=== PATIENT | female | born 1995 | race Caucasian/White ===

== ENCOUNTER → 2016-07-31 | Outpatient (CLI) | payer BC, MEDICAID ==
[~2016-07-31] MED LIST: BACTRIM 400 MG-1 TAB PO; TESSALON PERLE100 MG PO; ZITHROMAX Z-PA250 M1 PO
[2016-08-04 10:37] LABS: Neisseria gonorrhoeae, NAA Negative (Negative)
== END ==
LOC: LAB 14:51
PROVIDERS: Nurse Practitioner Obstetrics & Gynecology
DX: Z72.51 High risk heterosexual behavior (principal)

== ENCOUNTER 2017-03-26 18:36 | Emergency (ER) | payer BC, MEDICAID ==
[~2017-03-26] VITALS: Ht 160 cm; Wt 98.9 kg
[2017-03-26 19:14] LABS: LYMPH % 17.4 % (10-50.0)
--- NOTE | 2017-03-26 19:26 | Emergency Room Report ---
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 N Clinical Suspician of Infection? N Mental Status: 1 - Regular (Normal Baseline) Sepsis Risk:Low Sepsis Risk Have you (or family members/close friends) recently traveled outside the [place]? N If Yes, where/when: Have you had exposure to infectious disease within the past month? N TB? Other? Specify: Comment The patient states that she is 35 weeks' gestation , prima , marketing program manager is Dr. Fairchild. She has had swelling of her legs since Wednesday 2 days ago. Both legs are swollen and both of them hurt from her knees down to her feet. She says that she called Dr. Fairchild's office today and they told her to go to outpatient, but when she went to her this evening there was nobody there and they sent her here. She says that her blood pressure has been good during the except it was a little elevated on one visit. She has had swelling off and on during this , but it is worse now. She feels a little winded when she walks. She has to concentrate to urinate. Otherwise she says she has no symptoms. ALLERGIES Coded Allergies: No Known Drug Allergies (NKDA) (06/09/14) Home Medications Reported Medications Ferrous Sulfate (Ferrous Sulfate 325MG) 325 MG PO DAILY History Medical History General CAD? No Angina: No WV: No Hypertension? No Hyperlipidemia? No CHF? No DVT? No PE? No COPD? No Asthma? No Anemia? No GERD? No Gastric ulcers? No GI Bleed? No Hernia? No Thyroid Problems? No Hypothyroidism? No CVA? No Seizures? No Diabetes? No Renal Insuffiency? No End Stage Renal Disease? No UTI? No Stones? No BPH? No GB Disease: No Nephritic Syndrome? No Asplenia? No Hepatitis? No Sickle Cell Disease? No Arthritis? No Migraines? No Cataracts? No Glaucoma? No MRSA? No HIV? No TB? No Anxiety? No Depression? No Cancer? No More? 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 FAIRCHILD Social History Smoking Hx Smoker: Never Smoker Tobacco: No Packs/day < 1 Pack Are you/the child exposed to second-hand smoke: No Alcohol Alcohol: No Review of Systems All Other Systems Reviewed and Negative Constitutional denies fever Respiratory shortness of breath (on exertion) Cardiovascular denies chest pain, edema Gastrointestinal denies abdominal pain Genitourinary see HPI. denies: abnormal vaginal bleeding. Psychiatric/Neurological denies headache Physical Exam Vital Signs Vital Signs Date Time Temp Pulse Resp B/P Pulse O2 O2 Flow FiO2 Ox Delivery Rate 03/26 1955 98.3 80 18 147/73 98 03/26 1842 98.3 88 18 152/88 98 General Appearance no apparent distress Eye Exam - bilateral eye normal exam, bilateral eye PERRL, bilateral eye EOMI Ear, Nose, Throat hearing grossly normal, normal ENT inspection Neck normal inspection, non-tender, supple, full range of motion Respiratory Status Yes: trachea midline, chest symmetrical, non tender chest. No: respiratory distress. Lung Sounds bilateral: normal breath sounds, lungs clear. Cardiovascular normal exam, regular rate/rhythm, no peripheral edema, no gallop, no JVD, no murmur, no rub, normal peripheral pulses Peripheral Pulses Pulses normal Yes Gastrointestinal normal bowel sounds, soft, no organomegaly, gravid uterus, consistent with gestational dates, nontender Extremities 1+ pitting edema of lower legs and ankles. Generalized tenderness of lower legs from knees to ankles. No erythema. No cords., normal pulses, capillary refill, sensation Neurologic alert, normal exam, oriented x 3 Mental status normal mood/affect Skin intact, normal color, warm/dry Medical Decision Making LABS/Meds/Orders Pt receiving controlled substance in ED? No Results/Orders Laboratory Tests 03/26/170: Urine Color YELLOW, Urine Appearance CLEAR, Urine pH 6.5, Ur Specific [place] 1.025, Urine Protein NEGATIVE, Urine Ketones NEGATIVE, Urine Blood NEGATIVE, Urine Nitrate NEGATIVE, Urine Bilirubin NEGATIVE, Urine Urobilinogen 1.0, Ur Leukocyte Esterase TRACE H, Urine RBC NONE, Urine WBC 10-20, Ur Squamous Epith Cells 20-50, Urine Bacteria 3+, Urine Glucose NEGATIVE 03/26/171903: Uric Acid 4.7, Magnesium 1.7 03/26/171903: Lactate Dehydrogenase 167 03/26/171903: Sodium 138, Potassium 4.0, Chloride 103, Carbon Dioxide 22, BUN 13, Creatinine 0.9, Estimated Creat Clear 154, Estimated GFR (MDRD) 79, Glucose 112 H, Calcium 8.6, Total Bilirubin 0.3, AST 19, ALT 11 L, Alkaline Phosphatase 181 H, Total Protein 6.9, Albumin 2.7 L, Globulin 4.2 H, Albumin/Globulin Ratio 0.6 L, WBC 11.5 H, RBC 3.84 L, Hgb 11.0 L, Hct 34.6 L, MCV 90.1, RDW 13.8, Plt Count 277, MPV 9.0, Gran % 76.8, Gran # 8.8 H, Lymphocytes % 17.4, Monocytes % 5.2, Eosinophils % 0.5, Basophils % 0.2, Lymphocytes # 2.0, Monocytes # 0.6, Eosinophils # 0.1, Basophils # 0.0, PUBS MCHC 31.7 L, MCH 28.5 Current Medication Orders Sig/Elicia Start time Last Medication Dose Route Stop Time Status Admin Sodium Chloride 10 ML PRN PRN 03/26 1900 AC IV 03/27 1857 Orders Procedure Date/time Status CULTURE, URINE 03/26 1940 Active LDH 03/26 1901 Complete URIC ACID 03/26 1900 Complete URINALYSIS/COMPLETE 03/26 1900 Complete MAGNESIUM 03/26 1900 Complete IV SALINE LOCK 03/26 1857 Active CBC WITH AUTO DIFF 03/26 1857 Complete CHEM 12 PROFILE 03/26 1857 Complete Progress - 8:00 PM: Case discussed with Dr. Fairchild. He states the patient may discharge, bed rest this weekend, he will follow her up at the first of the week. Departure Departure Disposition DC Home or Self Care(routine) Clinical Impression Primary Impression: Peripheral edema Secondary Impressions: Elevated blood pressure affecting in third trimester, antepartum Condition STABLE Referrals JACEK,RUBEN (Family) Additional Instructions Off work until Wednesday03/30/17. Bed rest this weekend. Contact Dr. Fairchild on Wednesday. ED Critical Care Critical Care No at 2009
[2017-03-26 19:46] LABS: URINE BILIRUBIN - DIPSTICK NEGATIVE (NEG); URINE BLOOD NEGATIVE (NEG)
[2017-03-26 20:02] LABS: URINE SQUAMOUS CELLS 20-50 #/hpf (0-5)
[2017-03-26 20:25] VITALS: BP 147/73
== END 2017-03-26 20:26 | disposition home or self-care (01) ==
LOC: ER 18:36
PROVIDERS: Emergency Medicine
DX: O14.93 Unspecified pre-eclampsia, third trimester (principal); Z3A.35 35 weeks gestation of pregnancy

== ENCOUNTER → 2017-03-30 | Outpatient (CLI) | payer BC, MEDICAID ==
[~2017-03-30] MED LIST changes: +FERROUS SULFAT325 M2 PO
== END ==
LOC: LAB 18:48
DX: Z34.80 Encounter for supervision of other normal pregnancy, unspecified trimester (principal)

== ENCOUNTER 2017-04-16 13:01 | Outpatient (CLI) | payer BC, MEDICAID ==
[~2017-04-16] VITALS: Ht 160 cm; Wt 103.9 kg
[2017-04-16 13:18] VITALS: BP 140/78
[2017-04-16] MEDS ORDERED: RANITIDINE HCL150 MG PO (13:21)
[2017-04-16 13:35] LABS: URINE BILIRUBIN - DIPSTICK NEGATIVE (NEG); URINE BLOOD NEGATIVE (NEG)
[2017-04-16 13:54] LABS: URINE SQUAMOUS CELLS TNTC #/hpf (0-5)
== END 2017-04-16 14:30 | disposition home or self-care (01) ==
LOC: OBOUT 13:01 → OB 13:02 → OBOUT 14:30
PROVIDERS: Nurse Practitioner Obstetrics & Gynecology
DX: O42.90 Premature rupture of membranes, unspecified as to length of time between rupture and onset of labor, unspecified weeks of gestation (principal); Z3A.37 37 weeks gestation of pregnancy

== ENCOUNTER 2017-05-05 04:44 | Inpatient (IN) | payer BC, MEDICAID ==
[~2017-05-05] VITALS: Ht 160 cm; Wt 108.4 kg
[~2017-05-05 04:44] MED LIST changes: +RANITIDINE HCL150 MG PO
--- OUTSIDE RECORDS SUMMARY | 2017-05-05 04:49 | External Medical Summary Rpt | CCD ---
Author Author , JORGE PATEL Address Unknown Phone [email or web address] Care Team Providers Care Environmental Air Specialist Name Role Phone [facility] # Unavailable Unavailable [id number], [facility] # [id number] Purpose Continuity of Care Document - 10-18-2009 through 2016 Problems Code Diagnosis DOS Provider Status N91.2 Amenorrhea, unspecified O13.3 GESTATIONAL HTN W/O SIGNIFICANT PROTEINURIA , THIRD TRIMESTER R60.9 EDEMA, UNSPECIFIED S90.121A Contusion of right lesser toe(s) without damage to nail, initial encounter Z00.00 Encounter for general adult medical examination without abnormal findings Medications Na ND Rx Da Fi Fi Am Da Di Ph RX Ph St me C No te ll ll ou ys ag ar # ys at rm s nt no ma ic us Or Da si cy ia de te s n re d BR 60 10 10 0 24 6 77 Ac OM 43 -1 -1 0. 64 HC ti FE 20 26 RA ve D 83 20 20 0 FT DM 71 11 11 6 TR CO OY UG H SY RU P CE 68 10 10 0 14 7 77 Ac FD 18 -1 -1 .0 64 HC ti IN 00 25 RA ve IR 71 20 20 FT 16 11 11 30 0 TR 0 OY MG CA PS UL E TX 37 08 09 3 28 28 77 Ac [place] 00 -1 -1 .0 16 HC ti OS 00 25 RA ve EC 45 20 20 FT 50 11 11 OT 2 TR C OY 20 .6 MG TA BL ET NA 00 04 09 1 30 15 76 BA Ac TX 09 -2 -1 .0 22 RT ti OX 30 76 MA ve EN 53 20 20 N 70 11 11 VE SO 1 RO DI NI UM QU E 55 0 MG TA B RA 53 12 09 3 60 30 74 BA Ac NI 74 -0 -1 .0 99 RT ti TI 60 7- 00 12 MA ve DI 25 20 20 N NE 30 10 11 VE 5 RO 15 NI 0 QU MG E TA BL ET NA 00 08 08 3 30 30 77 Ac TX 09 -1 -1 .0 16 HC ti OX 30 26 RA ve EN 53 20 20 FT 70 11 11 SO 1 TR DI OY UM 55 0 MG TA B TX 37 08 08 3 28 28 77 Ac IL 00 -1 -1 .0 16 HC ti OS 00 25 RA ve EC 45 20 20 FT 50 11 11 OT 2 TR C OY 20 .6 MG TA BL ET NA 00 04 04 1 30 15 76 BA Ac TX 09 -2 -2 .0 22 RT ti OX 30 6- 6- 00 76 MA ve EN 53 20 20 N 70 11 11 VE SO 1 RO DI NI UM QU E 55 0 MG TA B RA 53 12 04 3 60 30 74 BA Ac NI 74 -0 -2 .0 99 RT ti TI 60 7- 5- 00 12 MA ve DI 25 20 20 N NE 30 10 11 VE 5 RO 15 NI 0 QU MG E TA BL ET TX 37 04 04 5 28 28 76 BE Ac IL 00 -2 -2 .0 21 NG ti OS 00 5- 5 19 E ve EC 45 20 20 VIVEK 50 11 11 SH OT 2 UA C M 20 .6 MG TA BL ET RA 53 12 12 3 60 30 74 BA Ac NI 74 -0 -0 .0 99 RT ti TI 60 7- 8- 00 12 MA ve DI 25 20 20 N NE 30 10 10 VE 5 RO 15 NI 0 QU MG E TA BL ET NA 00 10 10 0 30 15 74 BA Ac TX 09 -2 -2 .0 60 RT ti OX 30 6- 6- 00 46 MA ve EN 53 20 20 N 70 10 10 VE SO 1 RO DI NI UM QU E 55 0 MG TA B RA 00 04 07 1 60 20 WA 73 BA Ac NI 17 -2 -1 .0 L- 49 RT ti TI 24 8- 3- 00 MA 10 MA ve DI 35 20 20 RT 1 N NE 74 10 10 VE 9 PH RO 15 AR NI 0 MA QU MG CY E # TA BL 10 ET 19 61 RA 00 04 04 1 60 20 WA 73 BA Ac NI 17 -2 -3 .0 L- 49 RT ti TI 24 8- 0- 00 MA 10 MA ve DI 35 20 20 RT 1 N NE 74 10 10 VE 9 PH RO 15 AR NI 0 MA QU MG CY E # TA BL 10 ET 19 61 TX 68 04 04 0 20 3 WA 73 BA Ac OM 38 -2 -3 .0 L- 49 RT ti ET 20 8- 0- 00 MA 10 MA ve PAUL 04 20 20 RT 0 N ZI 10 10 10 VE NE 1 PH RO AR NI 25 MA QU CY E MG # TA 10 BL 19 ET 61 Results Labs Lab Lab Date Result Refere Interp Status Commen Order Detail nces retati t Range on Cervicovaginal discharge rapid detection (04-16-2017 13:20) Cervico NEGATIV complet vaginal 017 E FOR ed 13:20 RUPTURE dischar ge NEGATIV rapid E FOR detecti RUPTURE on L Urinalysis with microscopy (04-16-2017 13:16) Comment: Collected by nurse? Y Comment: Hold specimen in OE? N Urine CLEAR CLEAR complet appeara 017 CLEAR L ed nce 13:16 determi nation Bacteri 3+ 3+ L O complet a 017 ed detecti 13:16 on in urine sedimen t by Urine NEGATIV NEG complet total 017 E ed bilirub 13:16 NEGATIV in E L detecti on by test Urine NEGATIV NEG complet blood 017 E ed detecti 13:16 NEGATIV on E L Urine YELLOW YELLOW complet color 017 YELLOW ed 13:16 L Glucose = NEG complet ur 017 NEGATIV ed test 13:16 E strip Urine NEGATIV NEG complet ketones 017 E ed 13:16 NEGATIV detecti E L on by mg/dL automat ed melanie Mucus 1+ 1+ L NEG complet detecti 017 ed on in 13:16 urine sedimen t by lig Urine NEGATIV NEG complet nitrite 017 E ed 13:16 NEGATIV detecti E L on by test strip Urine = 6.0 5.0-8.5 complet pH 017 ed 13:16 Urine = NEG complet protein 017 NEGATIV ed 13:16 E mg/dL measure ment by automat ed t Erythro OCC OCC 0 complet cytes 017 L ed detecti 13:16 rbc/hpf on in urine sedimen t Urine = 1.025 1.005-1 complet specifi 017 .030 ed c 13:16 gravity measure ment [place] TNTC 0-5 complet s 017 TNTC L ed epithel 13:16 #/hpf ial cells detecti on in u Urine 0.2 0.2 NEG complet urobili 017 L ed nogen 13:16 E.U./dL detecti on by test str Urine 20 - 50 O complet leukocy 017 ed melanie 13:16 wbc/hpf count (number /volume ) Urinalysis with microscopy (03-26-2017 19:40) Urine CLEAR CLEAR complet appeara 017 CLEAR L ed nce 19:40 determi nation Urine NEGATIV NEG complet total 017 E ed bilirub 19:40 NEGATIV in E L detecti on by test Urine NEGATIV NEG complet blood 017 E ed detecti 19:40 NEGATIV on E L Urine YELLOW YELLOW complet color 017 YELLOW ed 19:40 L Glucose = NEG complet ur 017 NEGATIV ed test 19:40 E strip Urine NEGATIV NEG complet ketones 017 E ed 19:40 NEGATIV detecti E L on by mg/dL automat ed melanie Mucus TRACE NEG complet detecti 017 TRACE L ed on in 19:40 urine sedimen t by lig Urine NEGATIV NEG complet nitrite 017 E ed 19:40 NEGATIV detecti E L on by test strip Urine = 6.5 5.0-8.5 complet pH 017 ed 19:40 Urine = NEG complet protein 017 NEGATIV ed 19:40 E mg/dL measure ment by automat ed t Urine = 1.025 1.005-1 complet specifi 017 .030 ed c 19:40 gravity measure ment Urine 1.0 1.0 NEG complet urobili 017 L ed nogen 19:40 E.U./dL detecti on by test str Comprehensive metabolic panel (03-26-2017 19:04) Serum = 4.2 1.3-3.2 complet globuli 017 gm/dL ed n 19:04 measure ment (mass/v olume) Serum = 112 74-106 complet or 017 mg/dL ed plasma 19:04 glucose measure ment (mas Serum = 4.0 3.5-5.1 complet potassi 017 mmoL/L ed um 19:04 measure ment Serum = 138 136-145 complet sodium 017 mmoL/L ed measure 19:04 ment Serum = 19 15-37 complet or 017 U/L ed plasma 19:04 asparta te aminotr ansfera ALT = 11 12-78 complet (SGPT) 017 U/L ed ser/elie 19:04 s Protein = 6.9 6.4-8.2 complet total 017 gm/dL ed ser/elie 19:04 s Serum = 0.6 1.1-1.8 complet or 017 ed plasma 19:04 albumin /globul in mass ra Serum = 2.7 3.4-5.0 complet or 017 gm/dL ed plasma 19:04 albumin measure ment (mas Serum = 181 46-116 complet or 017 U/L ed plasma 19:04 alkalin e phospha tase brandt Serum = 0.3 0.2-1.0 complet or 017 mg/dL ed plasma 19:04 total bilirub in measure m Serum = 13 7-18 complet or 017 mg/dL ed plasma 19:04 urea nitroge n measure men Serum = 8.6 8.5-10. complet or 017 mg/dL 1 ed plasma 19:04 calcium measure ment (mas Serum = 103 98-107 complet or 017 mmoL/L ed plasma 19:04 chlorid e measure ment (mo Carbon = 22 21.0-32 complet dioxide 017 mmoL/L .0 ed 19:04 measure ment Serum = 0.9 0.55-1. complet or 017 mg/dL 02 ed plasma 19:04 creatin ine measure ment ( Estimat = 154 50-200 complet ion of 017 ML/MIN ed creatin 19:04 ine renal clearan ce Estimat = 79 59- complet ed 017 ML/MIN ed glomeru 19:04 lar filtrat ion rate (GF Comment: REFERENCE RANGE: >60 ML/MIN/1.73 SQUARE METERS Comment: If this patient is -[place], then multiply the Comment: result by 1.210. Magnesium measurement (03-26-2017 19:04) Magnesi = 1.7 1.4-2.2 complet um 017 mg/dL ed measure 19:04 ment Serum or plasma uric acid measurement (m (03-26-2017 19:04) Serum = 4.7 2.6-7.2 complet or 017 mg/dL ed plasma 19:04 uric acid measure ment (m Lactate dehydrogenase measurement (enzym (03-26-2017 19:04) Lactate = 167 82-234 complet 017 U/L ed dehydro 19:04 genase measure ment (enzym CBC w auto diff (03-26-2017 19:04) Blood = 277 142-424 complet platele 017 K/mm3 ed t count 19:04 Red = 3.84 4.2-5.4 complet blood 017 M/mm3 ed cell 19:04 count Automat = 13.8 11.5-17 complet ed 017 % .5 ed erythro 19:04 cyte distrib ution width Blood = 11.5 4.8-10. complet leukocy 017 K/MM3 8 ed melanie 19:04 count (number /volume ) Baso % = 0.2 % 0.1-2.0 complet 017 ed 19:04 Automat = 0.1 0.0-0.4 complet ed 017 K/mm3 ed blood 19:04 eosinop hil count Automat = 0.5 % 0.1-12. complet ed 017 0 ed blood 19:04 eosinop hils/10 0 leukocy t Blood = 8.8 1.8-7.8 complet granulo 017 K/mm3 ed cytes 19:04 automat ed count (numb Automat = 9.0 7.4-10. complet ed 017 fl 4 ed blood 19:04 platele t mean volume brandt Automat = 0.0 0-0.2 complet ed 017 K/MM3 ed blood 19:04 basophi l count (count/ vo Granulo = 76.8 37.0-80 complet cyte 017 % .0 ed percent 19:04 age Blood = 34.6 37.0-47 complet hematoc 017 % .0 ed rit 19:04 (volume fractio n) Blood = 11.0 12.2-16 complet hemoglo 017 g/dL .2 ed bin 19:04 measure ment (mass/v olum Absolut = 2.0 0.7-4.5 complet e 017 K/mm3 ed lymphoc 19:04 yte count Lymphoc = 17.4 10-50.0 complet yte 017 % ed count, 19:04 blood, automat ed Mean = 28.5 27-31.2 complet corpusc 017 pg ed ular 19:04 hemoglo bin (MCH) determ Automat = 31.7 31.8-35 complet ed 017 g/dl .4 ed erythro 19:04 cyte mean corpusc ular h Automat = 90.1 82.2-97 complet ed 017 fl .8 ed erythro 19:04 cyte mean corpusc ular v Absolut = 0.6 0.1-1.0 complet e 017 K/mm3 ed monocyt 19:04 e count [place] % = 5.2 % 1.7-9.3 complet 017 ed 19:04
--- OUTSIDE RECORDS SUMMARY | 2017-05-05 04:49 | External Medical Summary Rpt | CCD ---
Author Author , JORGE PATEL Address Unknown Phone [email or web address] Care Team Providers Care Copping Machine Operator Name Role Phone [facility] # Unavailable Unavailable [id number], [facility] # [id number] Purpose Continuity of Care Document - 10-18-2009 [...] 0 OY MG CA PS UL E HI 37 08 09 3 28 28 77 Ac IL 00 -1 -1 .0 16 HC ti OS 00 25 RA ve EC 45 20 20 FT 50 11 11 OT 2 TR C OY 20 .6 MG TA BL ET NA 00 04 09 1 30 15 76 BA Ac HI 09 -2 -1 .0 22 RT ti [...] 08 08 3 30 30 77 Ac HI 09 -1 -1 .0 16 HC ti OX 30 26 RA ve EN 53 20 20 FT 70 11 11 SO 1 TR DI OY UM 55 0 MG TA B HI 37 08 08 3 28 28 77 Ac IL 00 -1 -1 .0 16 HC ti OS 00 25 RA ve EC 45 20 20 FT 50 11 11 OT 2 TR C OY 20 .6 MG TA BL ET NA 00 04 04 1 30 15 76 BA Ac HI 09 -2 -2 .0 22 RT ti [...] 0 QU MG E TA BL ET HI 37 04 04 5 28 28 76 [...] 10 0 30 15 74 BA Ac HI 09 -2 -2 .0 60 RT ti [...] # TA BL 10 ET 19 61 HI 68 04 04 0 20 3 WA [...] SQUARE METERS Comment: If this patient is -[place]vorian, then multiply the Comment: result by 1.210. [...] 017 K/mm3 ed monocyt 19:04 e count [place] % = 5.2 % 1.7-9.3 complet 017 ed 19:04
--- OUTSIDE RECORDS SUMMARY | 2017-05-05 04:50 | External Medical Summary Rpt ---
Author Author JORGE Haque, JORGE Haque Organization [employer] Address Unknown Phone Unavailable
--- OUTSIDE RECORDS SUMMARY | 2017-05-05 04:50 | External Medical Summary Rpt | CCD ---
Author Author , JORGE WILLIAMMARCO ANTONIO Address Unknown Phone [email or web address] Immunization Name Date Rout CVX Reac Dose Comm Prov Is Faci e tion ent ider Refu lity Give sed n Vari 01-1 21 999 Hist H196 No H196 cell 8-20 oric a 02 al Info rmat ion - Sour ce Unsp ecif ied Hep 01-1 8 999 Hist H196 No H196 B, 8-20 oric ped/ 02 al adol Info rmat ion - Sour ce Unsp ecif ied DTaP 12-0 107 999 Hist H196 No H196 , UF 8-20 oric 00 al Info rmat ion - Sour ce Unsp ecif ied MMR 12-0 3 999 Hist H196 No H196 8-20 oric 00 al Info rmat ion - Sour ce Unsp ecif ied Jesus 12-0 10 999 Hist H196 No H196 o-IP 8-20 oric V 00 al Info rmat ion - Sour ce Unsp ecif ied DTP- 10-2 22 999 Hist H196 No H196 Hib 1-19 oric 97 al Info rmat ion - Sour ce Unsp ecif ied MMR 10-2 3 999 Hist H196 No H196 1-19 oric 97 al Info rmat ion - Sour ce Unsp ecif ied Hep 05-2 8 999 Hist H196 No H196 B, 1-19 oric ped/ 97 al adol Info rmat ion - Sour ce Unsp ecif ied Vari 05-2 21 999 Hist H196 No H196 cell 1-19 oric a 97 al Info rmat ion - Sour ce Unsp ecif ied DTP- 01-1 22 999 Hist H196 No H196 Hib 5-19 oric 97 al Info rmat ion - Sour ce Unsp ecif ied Jesus 01-1 2 999 Hist H196 No H196 o-OP 5-19 oric V 97 al Info rmat ion - Sour ce Unsp ecif ied DTP- 10-1 22 999 Hist H196 No H196 Hib 7-19 oric 96 al Info rmat ion - Sour ce Unsp ecif ied Jesus 10-1 2 999 Hist H196 No H196 o-OP 7-19 oric V 96 al Info rmat ion - Sour ce Unsp ecif ied Hep 07-1 8 999 Hist H196 No H196 B, 8-19 oric ped/ 96 al adol Info rmat ion - Sour ce Unsp ecif ied DTP- 07-1 22 999 Hist H196 No H196 Hib 8-19 oric 96 al Info rmat ion - Sour ce Unsp ecif ied Jesus 07-1 2 999 Hist H196 No H196 o-OP 8-19 oric V 96 al Info rmat ion - Sour ce Unsp ecif ied
--- OUTSIDE RECORDS SUMMARY | 2017-05-05 04:50 | External Medical Summary Rpt | CCD ---
Demographics Preferred Language Faroese Marital Status Unknown Religion Affiliation Unknown Race Unknown Ethnic Group Unknown Author Author , JORGE WILLIAMMARCO ANTONIO Address Unknown Phone [email or web address] Care Team Providers Care Coater Name Role Phone [facility] # Unavailable Unavailable [id number], [facility] # [id number] Purpose Continuity of Care Document - 10-18-2009 through 2016 Medications Na ND Rx Da Fi Fi Am Da Di Ph RX Ph St me C No te ll ll ou ys ag ar # ys at rm s nt no ma ic us Or Da si cy ia de te s n re d CE 68 10 10 0 14 7 77 Ac FD 18 -1 -1 .0 64 HC ti IN 00 25 RA ve IR 71 20 20 FT 16 11 11 30 0 TR 0 OY MG CA PS UL E BR 60 10 10 0 24 6 77 Ac OM 43 -1 -1 0. 64 HC ti FE 20 26 RA ve D 83 20 20 0 FT DM 71 11 11 6 TR CO OY UG H SY RU P OK 37 08 09 3 28 28 77 Ac IL 00 -1 -1 .0 16 HC ti OS 00 25 RA ve EC 45 20 20 FT 50 11 11 OT 2 TR C OY 20 .6 MG TA BL ET RA 53 12 09 3 60 30 74 BA Ac NI 74 -0 -1 .0 99 RT ti TI 60 12 MA ve DI 25 20 20 N NE 30 10 11 VE 5 RO 15 NI 0 QU MG E TA BL ET NA 00 04 09 1 30 15 76 BA Ac OK 09 -2 -1 .0 22 RT ti OX 30 76 MA ve EN 53 20 20 N 70 11 11 VE SO 1 RO DI NI UM QU E 55 0 MG TA B OK 37 08 08 3 28 28 77 Ac IL 00 -1 -1 .0 16 HC ti OS 00 25 RA ve EC 45 20 20 FT 50 11 11 OT 2 TR C OY 20 .6 MG TA BL ET NA 00 08 08 3 30 30 77 Ac OK 09 -1 -1 .0 16 HC ti OX 30 9- 9- 00 26 RA ve EN 53 20 20 FT 70 11 11 SO 1 TR DI OY UM 55 0 MG TA B NA 00 04 04 1 30 15 76 BA Ac OK 09 -2 -2 .0 22 RT ti [...] 0 QU MG E TA BL ET OK 37 04 04 5 28 28 76 BE Ac IL 00 -2 -2 .0 21 NG ti OS 00 5- 5- 00 19 E ve EC 45 20 20 [...] 10 0 30 15 74 BA Ac OK 09 -2 -2 .0 60 RT ti [...] # TA BL 10 ET 19 61 OK 68 04 04 0 20 3 WA 73 BA Ac OM 38 -2 -3 .0 L- 49 RT ti ET 20 8- 0- 00 MA 10 MA ve PAUL 04 20 20 RT 0 N ZI 10 10 10 VE NE 1 PH RO AR NI 25 MA QU CY E MG # TA 10 BL 19 ET 61 RA 00 04 04 1 60 [...]
--- OUTSIDE RECORDS SUMMARY | 2017-05-05 04:50 | External Medical Summary Rpt | CCD ---
Author Author , JORGE WILLIAMMARCO ANTONIO Address Unknown Phone [email or web address] Immunization Name Date Rout CVX Reac Dose [...]
--- OUTSIDE RECORDS SUMMARY | 2017-05-05 04:50 | External Medical Summary Rpt | CCD ---
Demographics Preferred Language Chinese Marital Status Unknown Jew Affiliation Unknown Race Unknown Ethnic Group Unknown Author Author , JORGE WILLIAMMARCO ANTONIO Address Unknown Phone [email or web address] Domain Care Team Providers Care Camouflage Assembler Name Role Phone [facility] # Unavailable Unavailable [id number], [facility] # [id number] Purpose Continuity of Care Document - 10-18-2009 [...] CO OY UG H SY RU P WA 37 08 09 3 28 28 77 [...] 09 1 30 15 76 BA Ac WA 09 -2 -1 .0 22 RT ti OX 30 76 MA ve EN 53 20 20 N 70 11 11 VE SO 1 RO DI NI UM QU E 55 0 MG TA B WA 37 08 08 3 28 28 77 Ac IL 00 -1 -1 .0 16 HC ti OS 00 25 RA ve EC 45 20 20 FT 50 11 11 OT 2 TR C OY 20 .6 MG TA BL ET NA 00 08 08 3 30 30 77 Ac WA 09 -1 -1 .0 16 HC ti OX 30 9- 9- 00 26 RA ve EN 53 20 20 FT 70 11 11 SO 1 TR DI OY UM 55 0 MG TA B NA 00 04 04 1 30 15 76 BA Ac WA 09 -2 -2 .0 22 RT ti [...] 0 QU MG E TA BL ET WA 37 04 04 5 28 28 76 [...] 10 0 30 15 74 BA Ac WA 09 -2 -2 .0 60 RT ti [...] # TA BL 10 ET 19 61 WA 68 04 04 0 20 3 WA [...]
[2017-05-05 05:10] VITALS: BP 136/87
[2017-05-05 06:19] LABS: HEMOGLOBIN 10.3 g/dL (12.2-16.2); LYMPH # 2.9 K/mm3 (0.7-4.5)
[2017-05-05 06:38] LABS: ABO BLOOD TYPE O; RH BLOOD TYPE POSITIVE
[2017-05-05 07:46] VITALS: BP 147/88
--- NOTE | 2017-05-05 08:16 | LABOR NOTE ---
Laboring Subjective Subjective Date 05/05/17 Time 0725 Subjective: Pt is having regular contractions Laboring Objective Objective NST: Reactive Contractions: q 2-3 minutes Cervical dilation: 3-4 Effacement: 90% Station: -1 Membranes are: Artificially ruptured (with clear fluid) Fetus monitoring? Yes Type: Internal Comment: I inserted an IUPC and scalp clip Laboring Assessment Assessment Progressing? Yes Cephalopelvic disproportion? No Problem List: 1. Elevated blood pressure affecting in third trimester, antepartum 2. Post-dates Laboring Plan Plan Anethesia for epidural? No Continue to labor down? Yes Plan for ? No Continue to monitor? Yes Start pushing? No Comment: She was brought in for induction of labor postdates. She has been having some regular contractions on her own and is change from 2 cm the other day in the office to 4 cm now. at 0816
--- NOTE | 2017-05-05 11:19 | LABOR NOTE ---
Laboring Subjective Subjective Date 05/05/17 Time 1118 Subjective: Pt is having regular contractions Laboring Objective Objective NST: Reactive Contractions: q 2-3 minutes Cervical dilation: 5-6 Effacement: 100% Station: 0 Membranes are: Artificially ruptured Fetus monitoring? Yes Type: Internal Laboring Assessment Assessment Progressing? Yes Cephalopelvic disproportion? No Problem List: 1. Post-dates Laboring Plan Plan Anethesia for epidural? Yes Continue to labor down? Yes Plan for ? No Continue to monitor? Yes Start pushing? No at 1119
--- NOTE | 2017-05-05 13:45 | LABOR NOTE ---
Laboring Subjective Subjective Date 05/05/17 Time 1343 Subjective: Pt is having regular contractions Laboring Objective Objective NST: Reactive Contractions: q 2-3 minutes Cervical dilation: 9 (Fullydilated) Effacement: 100% Station: +2 Membranes are: Artificially ruptured Fetus monitoring? Yes Type: Internal Laboring Assessment Assessment Progressing? Yes Cephalopelvic disproportion? No Problem List: 1. Post-dates Laboring Plan Plan Anethesia for epidural? Yes Continue to labor down? Yes Plan for ? No Continue to monitor? Yes Start pushing? Yes Comment: She is fully dilated and we'll get her start pushing. We'll see how she does. at 1344
--- NOTE | 2017-05-05 14:50 | Delivery Note ---
Delivery note Delivery date: 05/05/17 Delivery time: 1428 Anesthesia: Sinan Davis, epidural Was labor medically induced? Yes Method for inducing labor: Oxytocin Gestational age in weeks: 40 weeks Days: 3 days Delivery prior to 39 weeks? No Sex: female score at one minute: 9 at 5 minutes: 9 Type of suction: bulb AF: Clear fluid LAC or MLE: LAC (1st degree) Delivery procedure: Forceps Delivery Delivery of placenta: spontaneous Clinical note She is a 21-year-old 1 now para 0 who was 40 and 3 weeks gestational age. She was post dates so we brought her in for induction of labor at term. She was started on IV oxytocin had her membrane ruptured. She progressed under labor epidural to full dilation and began pushing. She was having some prolonged decelerations with each push and since she was +4 in the direct OA position we elected to place forceps. The bladder was drained. Using one gentle pull I was able to easily deliver the head over an intact perineum. There was a nuchal cord that was reduced followed by deliver the anterior shoulder and the rest infant's body H medically. The oropharynx and nasopharynx were bulb suctioned. The baby cried spontaneous E. We then allowed the cord to continue pulsate for approximately 45 seconds. The cord was then doubly clamped and the infant was handed off to Dr. Watts who assigned Apgars of 9 at 1 minute and 9 at 5 minutes. We then obtained cord blood as well as cord pH. The pH was 7.36. Using gentle traction on the cord and countertraction on the fundus I was able to easily deliver the placenta intact. It had a normal three-vessel cord. She had a vaginal laceration that was repaired with running 3-0 Vicryl Rapide suture.there were lateral incisions at the perineum that were repaired with interrupted 2-0 Vicryl Rapide suture. She has O positive blood, she is rubella immune and was group B streptococcus negative. She plans to bottlefeed. Her history teacher is Dr. Watts. Estimated blood loss was approximately 400 mL. at 0963
[2017-05-05 19:50] VITALS: BP 116/63
[2017-05-06 07:54] LABS: HEMOGLOBIN 8.1 g/dL (12.2-16.2)
--- NOTE | 2017-05-06 07:56 | ACUTE CARE PROGRESS NOTE (QUA) ---
Progress Notes Subjective Date 05/06/17 Time 0754 Note She is doing well this morning. She is eating and drinking and ambulating. She is bottlefeeding. Her lochia is normal. Patient/family reports: feeling better, no complaints Objective Findings Last VS-Temp:98.0 B/P:116/63 Pulse:74 Resp:18 SaO2: Last weight lbs:239 oz:0 K.410 Method:Floor Scales Laboratory Tests 05/06/17 0629: Hgb 8.1 L, Hct 25.5 L 05/05/17 1440: Cord Blood pH 7.36 Exam General appearance: normal appearance, alert, awake, no acute distress Reviewed: vital signs, lab results Assessment/Plan Problem List 1. Post-dates 2. Anemia Patient condition Improving, Stable Plan: continue current care This inpt stay is expected to cross 2 MNs from start of care Yes Comments: She is doing very well this morning. We will start iron tablets since her hemoglobin is somewhat low. We will plan to send her home tomorrow. at 0756
[2017-05-06] MEDS ORDERED: MOTRIN 400MG.400 MG PO (07:58)
[2017-05-06] MEDS ORDERED: IRON TABLETS325 MG PO (07:58)
--- NOTE | 2017-05-06 08:01 | Discharge Summary ---
Discharge Summary Admission date: 05/05/17 Discharge date: 05/07/17 Discharge diagnoses: Postterm , forceps delivery Clinical note: She is a 21-year-old 1 now para 0 who was 40-1/2 weeks gestational age. She was brought in for induction of labor postdates. Course in hospital: She was started on IV oxytocin had her membranes ruptured. She began pushing and was having some prolonged decelerations. As result of that we elect to place forceps in the direct OA position at station +4. She delivered a live-born female child at 2:29 PM in the afternoon of May 05, 2017. The baby weighed 7 lbs. 3 oz. and was 19-1/2 inches long. She had Apgars of 9 at 1 minute and 9 at 5 minutes. She has done well and has remained afebrile throughout her hospitalization. She is eating and drinking and ambulating. She is somewhat anemic with a hemoglobin of 8.1 although she is completely asymptomatic. Her hemoglobin prior to delivery was only 10.3. She has O positive blood, she is rubella immune and was group B streptococcus negative. She is bottlefeeding. Her inspector aluminum boat is Dr. Watts. Laboratory Tests 05/06/17 0629: Hgb 8.1 L, Hct 25.5 L 05/05/17 1440: Cord Blood pH 7.36 05/05/17 0520: MCH 26.7 L 05/05/17 0520: WBC 13.9 H, RBC 3.84 L, Hgb 10.3 L, Hct 32.5 L, MCV 84.5, RDW 14.9, Plt Count 266, MPV 9.7, Gran % 70.1, Gran # 9.7 H, Lymphocytes % 21.0, Monocytes % 7.2, Eosinophils % 1.4, Basophils % 0.3, Lymphocytes # 2.9, Monocytes # 1.0, Eosinophils # 0.2, Basophils # 0.0, PUBS MCHC 31.6 L, Antibody Screen NEGATIVE, Miscellaneous Test POSITIVE Plans for ongoing care: She is discharged home to follow-up with me in approximately 2 weeks' time. Discharge medications She will continue with her vitamins and iron. I've given her prescription for Motrin 400 mg number 40 tablets to take as needed for discomfort. She was given a prescription for ferrous sulfate 325 mg, number 60 tablets. DC/follow-up instructions She was given the usual instructions with respect to limiting her activity, driving and sexual activity. Condition at discharge Stable and improved at 0801
[2017-05-06 19:40] VITALS: BP 127/77
--- NOTE | 2017-05-07 06:25 | ACUTE CARE PROGRESS NOTE (QUA) ---
Progress Notes Subjective Date 05/07/17 Time 0623 Note This is day number 2. The patient is afebrile. Vital signs stable. Abdomen soft. Lochia normal. Perineum healing well. Her hemoglobin is 8.1 g, but she is clinically stable on oral iron. She is being discharged on iron and vitamins, and on Tylenol and Motrin, as needed for pain. She is to follow up with Dr. Fairchild in 2 weeks. Assessment/Plan Problem List 1. Post-dates 2. Anemia This inpt stay is expected to cross 2 MNs from start of care Yes at 0624
[2017-05-07 08:20] VITALS: BP 138/76
== END 2017-05-07 10:40 | disposition home or self-care (01) | DRG 775 ==
LOC: OB 04:44
PROVIDERS: Nurse Practitioner Obstetrics & Gynecology
PROC: 10D07Z3 Extraction of Products of Conception, Low Forceps, Via Natural or Artificial Opening (ICD-10-PCS; principal; 2017-05-05)
PROC: 0HQ9XZZ Repair Perineum Skin, External Approach (ICD-10-PCS; principal; 2017-05-05)
DX: O70.0 First degree perineal laceration during delivery (principal); O66.5 Attempted application of vacuum extractor and forceps; Z3A.40 40 weeks gestation of pregnancy; Z37.0 Single live birth; O76 Abnormality in fetal heart rate and rhythm complicating labor and delivery
CPT/HCPCS: C1758; J2405